=== PATIENT | male | born 1995 | race Caucasian/White ===

== ENCOUNTER 2017-10-13 04:33 | Emergency (ER) | payer BC, OTHER ==
[2017-10-13] MEDS ORDERED: NICOTINE 21 MG/24 HR PATCH.TD24 TD ONE (05:30)
[2017-10-13] MEDS ORDERED: LORAZEPAM INJ 2 MG/1 ML VIAL IM ONE (05:36)
[2017-10-13] MEDS ORDERED: FOLIC ACID INJ 5 MG/1 ML 10 ML VIAL IV ONE (05:36)
[2017-10-13] MEDS ORDERED: THIAMINE HCL 100 MG in NORMAL SALINE 50 ML IV ONE (05:36)
[2017-10-13] MEDS ORDERED: NORMAL SALINE 1000 ML 1,000 ML IV ONE (05:36)
--- NOTE | 2017-10-13 05:42 | ER Document Report ---
ED General - General Chief Complaint: Suicidal Ideation Stated Complaint: VOLUNTARY COMMIT Time Seen by Provider: 10/13/17 05:36 Notes: Patient is 22-year-old male who presents with complaint of suicidal ideations. Patient is brought in by police. Police were called to pick patient up because he called the [place] hotline said he wanted to hurt himself. The please told him that if he refuses to go that they would not involuntary commit him and take him in handcuffs. Patient therefore came here but now that is here he is now saying that he does not want to be here and he says he only told police he would be willing to come so that they would not place him in handcuffs. He does admit that he has a history of suicide attempts in the past. He has history of severe PTSD. He has a history of chronic alcoholism and drinks alcohol every day. He says that he stays with his mother. He says that his mother treats him like he is "an indolent" and that she does not help his depression or thoughts of suicide. Patient says he does drink every day. He is unsure if he has withdrawal symptoms. He denies having tremors or shakes when gone without drinking. He has tried the hurt himself in the past. He denies doing anything tonight to hurt himself. TRAVEL OUTSIDE OF THE U[place] IN LAST 30 DAYS: No - Related Data Allergies/Adverse Reactions: No Known Allergies Allergy (Unverified 03/19/16 05:07) Past Medical History - Social History Smoking Status: Current Every Day Smoker Frequency of alcohol use: Heavy Drug Abuse: None Family History: Reviewed & Not Pertinent Past Surgical History: Reports: Hx Appendectomy, Hx Cholecystectomy, Hx Kidney ( Renal Surgery) Review of Systems - Review of Systems Notes: My Normal Review Basic REVIEW OF SYSTEMS: CONSTITUTIONAL : Denies fever, chills, or sweats. Denies recent illness. EENT: Denies eye, ear, throat, or mouth pain or symptoms. Denies nasal or sinus congestion. CARDIOVASCULAR: Denies chest pain. RESPIRATORY: Denies cough, cold, or chest congestion. Denies shortness of breath, difficulty breathing, or wheezing. GASTROINTESTINAL: Denies abdominal pain. Denies nausea, vomiting, or diarrhea. MUSCULOSKELETAL: Denies neck or back pain or joint pain or swelling. SKIN: Denies rash or skin lesions. NEUROLOGICAL: Denies altered mental status or loss of consciousness. Denies headache. Denies weakness or paralysis or loss of use of either side. Denies problems with gait or speech. Denies sensory or motor loss. PSYCHIATRIC: Severe depression and thoughts of suicide. ALL OTHER SYSTEMS REVIEWED AND NEGATIVE. Physical Exam - Vital signs Vitals: Temp Pulse Resp BP Pulse Ox 97.5 F 120 H 20 133/88 H 100 10/13/17 05:01 10/13/17 05:01 10/13/17 05:01 10/13/17 05:01 10/13/17 05:01 - Notes Notes: General Appearance: Well nourished, alert, no acute distress, no obvious discomfort. Patient is at times tearful on exam. He will never make eye contact. He is constantly staring at the wall or the floor. Vitals: reviewed, See vital signs table. Head: no swelling or tenderness to the head Eyes: PERRL, EOMI, Conjuctiva clear Neck: Supple, no neck tenderness, No thyromegaly Lungs: No wheezing, No rales, No rhonci, No accessory muscle use, good air exchange bilaterally. Heart: Tachycardic rate, Regular rythm, No murmur, no rub Abdomen: Normal BS, soft, No rigidity, No abdominal tenderness, No guarding, no rebound, no abdominal masses, no organomegaly Extremities: strength 5/5 in all extremities, good pulses in all extremities, no swelling or tenderness in the extremities, no edema. Skin: warm, dry, appropriate color, no rash Neuro: speech clear, oriented x 3, normal affect, responds appropriately to questions. Normal gait.. Course - Re-evaluation Re-evalutation: 10/13/17 05:40 Patient refuses to say that he will stay voluntarily. He keeps saying he wants to leave. Patient mixed very poor eye contact and is very agitated and tearful at the same time. He tells me that he would go home if he left here. I asked him what kind of support system he has any says his mom lives here however him this mom do not get along and he says that she makes everything worse. He does not have a good support system to be discharged home to and the patient is very concerning that he will not make any sort of eye contact is very easily agitated and tearful and I fear that if he were to leave. He would most likely kill himself based on my findings on exam and my interaction with him. I have therefore place him on involuntary commitment paperwork. Being that he has a history of alcohol abuse I will have him placed on a monitor. He is currently tachycardic but I do not think this is from withdrawal. He has no tremors. I think the tachycardia is due to his emotional state and agitation. Will have to be monitored for symptoms of withdrawal while he was here in the ER because of his chronic history of alcohol use.. - Vital Signs Vital signs: Temp Pulse Resp BP Pulse Ox 97.5 F 120 H 20 133/88 H 100 10/13/17 05:01 10/13/17 05:01 10/13/17 05:01 10/13/17 05:01 10/13/17 05:01
[2017-10-13 06:23] LABS: APPEARANCE,URINE CLEAR; BILIRUBIN,URINE NEGATIVE (NEGATIVE); COLOR,URINE STRAW; GLUCOSE, URINE NEGATIVE (NEGATIVE); KETONES,URINE NEGATIVE (NEGATIVE); LEUKOCYTE ESTERASE,URINE NEGATIVE (NEGATIVE); NITRITE,URINE NEGATIVE (NEGATIVE); PROTEIN,URINE NEGATIVE (NEGATIVE); URINE SPECIFIC GRAVITY 1.003; UROBILINOGEN,URINE NEGATIVE mg/dL (<2.0)
[2017-10-13] MEDS ORDERED: THIAMINE HCL INJ 200 MG/2 ML VIAL ONE (06:26)
[2017-10-13 06:36] LABS: URINE AMPHETAMINES SCREEN NEGATIVE; URINE BARBITURATES SCREEN NEGATIVE; URINE BENZODIAZEPINES SCREEN NEGATIVE; URINE COCAINE SCREEN NEGATIVE; URINE MARIJUANA (THC) SCREEN NEGATIVE; URINE METHADONE SCREEN NEGATIVE; URINE PHENCYCLIDINE SCREEN NEGATIVE
[2017-10-13 06:37] LABS: HEMATOCRIT 50.3 % (37.9-51.0); HEMOGLOBIN 17.8 g/dL (13.5-17.0); MEAN CORPUSCULAR HEMOGLOBIN 29.8 pg (27.0-33.4); MEAN CORPUSCULAR HGB CONC 35.4 g/dL (32.0-36.0); MEAN CORPUSCULAR VOLUME 84 fl (80-97); PLATELET COUNT 227 10^3/uL (150-450); RED BLOOD COUNT 5.99 10^6/uL (4.35-5.55); RED CELL DISTRIBUTION WIDTH 14.2 % (11.5-14.0); WHITE BLOOD COUNT 9.4 10^3/uL (4.0-10.5)
[2017-10-13 07:06] LABS: ALANINE AMINOTRANSFERASE 137 U/L (21-72); ALBUMIN 5.3 g/dL (3.5-5.0); ALCOHOL 71 mg/dL (NONE DETECTED); ALKALINE PHOSPHATASE 100 U/L (38-126); ANION GAP 17 (5-19); ASPARTATE AMINO TRANSFERASE 93 U/L (17-59); BILIRUBIN,DIRECT 0.2 mg/dL (0.0-0.4); BILIRUBIN,TOTAL 1.7 mg/dL (0.2-1.3); BLOOD UREA NITROGEN 12 mg/dL (7-20); CALCIUM 10.7 mg/dL (8.4-10.2); CARBON DIOXIDE 29 mmol/L (22-30); CHLORIDE 98 mmol/L (98-107); GLUCOSE 112 mg/dL (75-110); POTASSIUM 3.9 mmol/L (3.6-5.0); SODIUM 143.5 mmol/L (137-145); TOTAL PROTEIN 7.4 g/dL (6.3-8.2)
[2017-10-13 07:10] LABS: ACETAMINOPHEN < 10 ug/mL (10-30); SALICYLATE < 1.0 mg/dL (2.0-20.0)
[2017-10-13 07:27] LABS: ABSOLUTE LYMPHOCYTES# (MANUAL) 2.8 10^3/uL (0.5-4.7); ABSOLUTE MONOCYTES # (MANUAL) 0.6 10^3/uL (0.1-1.4); ABSOLUTE NEUTROPHILS# (MANUAL) 5.8 10^3/uL (1.7-8.2); BASOPHILS % (MANUAL) 0 % (0-2); EOSINOPHILS % (MANUAL) 2 % (0-6); LYMPHOCYTES % (MANUAL) 30 % (13-45); MONOCYTES % (MANUAL) 6 % (3-13); SEGMENTED NEUTROPHILS % (MAN) 62 % (42-78); TOTAL CELLS COUNTED 100
[2017-10-13 07:29] LABS: PLATELET COMMENT ADEQUATE; RBC MORPHOLOGY COMMENT NORMO-CYTIC/CHROMIC
--- NOTE | 2017-10-13 08:45 | EKG REPORT ---
SEVERITY:- BORDERLINE ECG - SINUS TACHYCARDIA INFERIOR Q WAVES, PROBABLY NORMAL VARIATION BORDERLINE T ABNORMALITIES, INFERIOR LEADS : Confirmed by: Victorino Thapa MD 13-Oct-2017 08:45:30
--- NOTE | 2017-10-13 09:41 | ER Document Report ---
Doctor's Note Notes: 10/13/17 09:39 22-year-old male who presenting with suicidal ideation with a history of alcohol intoxication. Patient was very agitated. The off going provider was very concerned about suicidal ideation. Patient is still slightly tachycardic but was very agitated. He was given medications to help him calm. Labs as recorded consistent with chronic alcohol abuse. We are awaiting psychology evaluation. Anticipate holding the patient at this time.
[2017-10-13] MEDS ORDERED: ONDANSETRON HCL INJ/PF 4 MG/2 ML SDV IV ONE (10:32)
[2017-10-13] MEDS ORDERED: LORAZEPAM 1 MG TABLET PO ONE (14:39)
--- NOTE | 2017-10-13 16:38 | PSYCHOLOGICAL NOTE ---
Psych Note - Psych Note Psych Note: Reason for consult: Suicidal Ideation; IVC Consent Permissions: Friends- Karthik [phone]; Charmaine [phone] Patient is 22-year-old male who presents with complaint of suicidal ideations. Patient is brought in by police. Police were called to pick patient up because he called the [place] hotline said he wanted to hurt himself. The please told him that if he refuses to go that they would not involuntary commit him and take him in handcuffs. Patient therefore came here but now that is here he is now saying that he does not want to be here and he says he only told police he would be willing to come so that they would not place him in handcuffs. He does admit that he has a history of suicide attempts in the past. He has history of severe PTSD. He has a history of chronic alcoholism and drinks alcohol every day. He says that he stays with his mother. Patient disclosed that he is unable to remember why he is currently at [facility] " I am drawing a blank." He states he knows that he came with "community service director." Patient states he drinks every night "just enough to get buzz." When asked if he was only buzzed why he cannot remember what brought him into [facility] he stated "as probably pretty" out of it. Patient then disclosed that he remembers calling mobile crisis because he was thinking about friends he lost in the [employer]. He states he has PTSD from this. When asked how long the patient served he stated "2 months... I was med sep." Clinician asked who his friends were that he lost from the [employer] he stated "Matt shot outside [place] and Prim killed himself." When asked about medications he stated he was unable to remember but he has not been on anything since having . Patient was asked where he filled his medications and he said [facility]. After confirming with the patient that the clinician will be calling in the hospital to get a list of medications he stated "just lisinopril and Adderall are the big ones." He states he has been on Adderall since he was 14 years old and confirms Adderall and Lisinopirl the reasons he was from the [employer] "I did not want take pills anymore." Patient currently disclosed that he has Blue Cross Blue Shield and is asking clinician for an itemized list of how much everything costs to include medications that have been provided to him. Patient is alert and orientated to person, place, time and circumstance. Mood is irritable with restricted affect.
[2017-10-13] MEDS ORDERED: TRAZODONE HCL 50 MG TABLET PO ONE (22:24)
--- NOTE | 2017-10-14 09:30 | ER Document Report ---
Doctor's Note Notes: 10/14/17 09:29 22-year-old male with history of post traumatic stress disorder presenting with alcohol intoxication initially with suicidal ideation. Vision initially on day 1 was very agitated. He wanted to leave shortly after arriving. Patient was very upset yesterday that he was not allowed to go home. Labs and vital signs as recorded. We are awaiting psychology reevaluation. 10/14/17 11:03 Patient is being much more calm and cooperative at this time. He is denying any suicidal ideations. Patient really would like us not to talk to his mother given their strained relationship. He does state that he has a very good friend Bunny who is helping him find outpatient follow-up. Patient is and [facility] We will call the front Bunny to try to have him picker and sorter load and unload the patient. We will provide outpatient follow-up and strict return precautions. 10/14/17 11:44 Bunny is currently in the room. We have provided outpatient services for counseling. [facility]. Bunny is very comfortable with the patient going home. He is able to help the patient and has known the patient since middle school. Patient is very calm and cooperative at this time. Patient will be discharged home with strict return precautions, outpatient resources provided, with an already scheduled [facility].
--- NOTE | 2017-10-14 11:53 | PSYCHOLOGICAL NOTE ---
Psych Note - Psych Note Psych Note: Reason for consult: Suicidal Ideation Contact Permission: Karthik Mendieta [phone] Patient is a 22 year old male. Patient denies SI/HI. Patient reports at the time he was just feeling upset because of the situation in his home. Patient reports he has been living with his mother and they often have conflicts that affect patient's mood. Patient reports that as he grew up his mother convinced him he was sick with everything she could think of and took him to the doctor's and specialist to test for "pretty much anything". Patient reports his mother even went as far to take him to an oncologist because she was convinced he had cancer. 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 Patient reports due to financial set backs he was forced to move back in with his parents and does not feel independent, as his mother is continuously trying to control his life leaving him depressed. Patient reports that he recently applied for a job and was worried that the prospective employer had reached out to him via cell phone and due to him not having his belongings that he would miss out on an opportunity. Patient reports he wants to get a job so he could pay his car insurance and hopefully be able to move out of his parents home. 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 Patient reports he imagines himself with an independent future. Patient reports he has friends that are supportive and prefer his friend [place] as his supportive person to assist him in making sure he goes to his doctor's appointment. Patient reports Karthik had already arranged an appointment with the [facility] for him however this is for medication management and the referral to actually see a therapist. Patient reports for insurance purposes he has to go through this process first before he can get outpatient [facility]. Patient reports he has plans in place so that he does not end up back in the ED for suicidal ideation. Patient reports he knew he would not actual act on those feelings initially ( denying any suicidal intent to begin with) however once he had spoken to someone on the phone for a "well-being check", that the officers forced him to come to the ED even though he did not feel it was necessary, as he was just speaking out of anger with his mother. Clinician utilized solution focused brief therapy techniques to assist client in identifying strengths, and a solution to his identified problem. Patient reports that he is independent, and he knows what to do, and reports he will continue to apply for a job because his sole problem is financial stress and being stuck in his parent's home due to having no finances of his own. Collateral Information: Karthik Mendieta [phone] Karthik states he has known patient since patient has been in middle school. Karthik states that he checks in with patient often, and he is well aware of how patient is faring. 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 Karthik verifies patient has an appointment at the [facility]. Karthik verifies that he will ensure patient attend the appointment, as well as following through with obtaining an outpatient therapy appointment, Karthik states they will call during business hours to see if they could get the outpatient therapy appointment sooner than the October 17 appointment that is for referral and meds. Medication Recommendations: Medication recommendations made by [facility] contracted psychiatrist Dr. Klaus MD. includes: None Diagnosis: Per Hx 309.81 ( F43.10) Posttraumatic Stress Disorder [ Clinician observed there was not enough information presented to diagnosis patient with this diagnosis, please note this diagnosis was strictly listed due to patient report of a previous diagnosis he received in an outpatient setting] V60.9 ( Z59.9) Unspecified Housing or Economic Problem Impression/Plan: Patient is psychiatrically clear for discharge by mental health. Recommendation for patient to follow up with primary care provider appointment on October 17, 3:00 pm with [facility]. Patient states this appointment will assist him with getting an actual therapy appointment, additional resources for outpatient therapy provided. Patient's friend Karthik included in discharge planning and agrees to assist patient in following up with plan.Consulted with Dr. Rico regarding the management and care of patient.
[2017-10-14 12:34] VITALS: BP 118/70
== END 2017-10-14 12:33 | disposition home or self-care (01) ==
LOC: ER 04:33
DX: F32.9 Major depressive disorder, single episode, unspecified (principal); F10.229 Alcohol dependence with intoxication, unspecified; R45.851 Suicidal ideations; R45.1 Restlessness and agitation; F17.200 Nicotine dependence, unspecified, uncomplicated; Z91.5 Personal history of self-harm
CPT/HCPCS: 93005; 99285; 96372; 96361; 96374; 96375; 36415; 80307 ×4; 85025; 80053; 81001; 93010; J3490; J2060; J3411; J2405; J7030

== ENCOUNTER 2018-10-21 22:45 | Emergency (ER) | payer SELFPAY ==
--- NOTE | 2018-10-22 01:25 | ER Document Report ---
ED Medical Screen (RME) - General Chief Complaint: Head Injury Stated Complaint: HIT HEAD Time Seen by Provider: 10/22/18 01:22 Notes: 23-year-old male struck the right side of his head on the refrigerator door and has been dizzy, lightheaded, disoriented, and very nauseous. "I saw stars." I have treated and performed a rapid initial assessment of this patient. A comprehensive ED assessment and evaluation of the patient, analysis of test results and completion of medical decision making process will be conducted by additional ED providers. PHYSICAL EXAMINATION: GENERAL: Well-appearing, well-nourished and in no acute distress. A&Ox4. Answers questions appropriately. LUNGS: Breath sounds clear to auscultation bilaterally and equal. No wheezes rales or rhonchi. HEART: Regular rate and rhythm without murmurs, rubs, gallops. Neurologic: No focal deficits TRAVEL OUTSIDE OF THE [place] IN LAST 30 DAYS: No - Related Data Allergies/Adverse Reactions: No Known Allergies Allergy (Unverified 03/19/16 05:07) Past Medical History Renal/ Medical History: Denies: Hx Peritoneal Dialysis Past Surgical History: Reports: Hx Appendectomy, Hx Cholecystectomy, Hx Kidney (Renal Surgery) Physical Exam - Vital signs Vitals: Temp Pulse Resp BP Pulse Ox 99.0 F 100 20 136/91 H 99 10/21/18 23:14 10/21/18 23:14 10/21/18 23:14 10/21/18 23:14 10/21/18 23:14 Course - Vital Signs Vital signs: Temp Pulse Resp BP Pulse Ox 99.0 F 100 20 136/91 H 99 10/21/18 23:14 10/21/18 23:14 10/21/18 23:14 10/21/18 23:14 10/21/18 23:14
--- NOTE | 2018-10-22 02:33 | RADIOLOGY REPORT (SQ) ---
CLINICAL HISTORY: disoriented after head injury COMPARISON: None. TECHNIQUE: CT HEAD WITHOUT IV CONTRAST on 10/22/2018 1:22 AM CDT This exam was performed according to our departmental dose-optimization program, which includes automated exposure control, adjustment of the mA and/or kV according to patient size and/or use of iterative reconstruction technique. FINDINGS: There is no acute hemorrhage, mass effect or midline shift. Escobar-white differentiation is preserved. There is no hydrocephalus. There is no significant volume loss for age. The calvarium is intact. Orbits and globes are unremarkable. The paranasal sinuses are clear. Mastoid air cells are clear. IMPRESSION: No acute intracranial findings.
--- NOTE | 2018-10-22 04:13 | ER Document Report ---
ED General - General Chief Complaint: Head Injury Stated Complaint: HIT HEAD Time Seen by Provider: 10/22/18 01:22 TRAVEL OUTSIDE OF THE [place] IN LAST 30 DAYS: No - HPI Notes: Patient presents emergency department for evaluation. He hit his head on the refrigerator door, when he was leaning down and to look into it. He states he felt some blurred vision and slightly dizzy following that. He states that on his drive here he felt slightly "disoriented." He does have a history of concussions in the past. He denies being on any blood thinners. He did not lose consciousness. He denies any significant pain at this time. - Related Data Allergies/Adverse Reactions: No Known Allergies Allergy (Unverified 03/19/16 05:07) Past Medical History - General Information source: Patient - Social History Smoking Status: Never Smoker Frequency of alcohol use: Rare Drug Abuse: None Family History: Reviewed & Not Pertinent Patient has suicidal ideation: No Patient has homicidal ideation: No - Past Medical History Cardiac Medical History: Reports: Hx Hypertension - supposed to take Lisinopril- non-compliant Renal/ Medical History: Denies: Hx Peritoneal Dialysis Past Surgical History: Reports: Hx Appendectomy, Hx Cholecystectomy, Hx Kidney (Renal Surgery) Review of Systems - Review of Systems Constitutional: No symptoms reported EENT: No symptoms reported Cardiovascular: No symptoms reported Respiratory: No symptoms reported Gastrointestinal: See HPI Genitourinary: No symptoms reported Musculoskeletal: No symptoms reported Neurological/Psychological: See HPI Physical Exam - Vital signs Vitals: Temp Pulse Resp BP Pulse Ox 99.0 F 100 20 136/91 H 99 10/21/18 23:14 10/21/18 23:14 10/21/18 23:14 10/21/18 23:14 10/21/18 23:14 - Notes Notes: Vital signs reviewed, please refer to chart. Patient is normocephalic, atraumatic. Pupils equal round, reactive to light. Neck is supple without meningismus. Heart is regular rate and rhythm. Lungs are clear to auscultation bilaterally. Abdomen is soft, nontender, normoactive bowel sounds throughout. Extremities without cyanosis, clubbing, edema. Peripheral pulses are equal. Skin is warm and dry. Patient is awake, alert, oriented x3. Cranial nerves II through XII are grossly intact without focal neurological deficits. Strength is plus 5 out of 5 bilateral upper and lower extremity's. Sensation is intact, intact [id number], rapid altering movements, heel to perry. Course - Re-evaluation Re-evalutation: 10/22/18 06:56 Patient presents emergency department for evaluation. He had CT scan ordered by regional provider. It was unremarkable. His neurological exam is unremarkable. The patient has suffered a mild head injury, symptoms consistent with concussion. The patient was told this information, that he needed to rest. He is 12 primary care, return to the ED with worsening or new concerning symptoms of any sort. - Vital Signs Vital signs: Temp Pulse Resp BP Pulse Ox 99.0 F 100 20 136/91 H 99 10/21/18 23:14 10/21/18 23:14 10/21/18 23:14 10/21/18 23:14 10/21/18 23:14 Discharge - Discharge Clinical Impression: Head injury due to trauma Condition: Stable Disposition: HOME, SELF-CARE Instructions: Head Injury Precautions ([facility]) Additional Instructions: Rest. Follow-up with your doctor this week. Return to the emergency department with worsening or new concerning symptoms. Forms: Return to Work
[2018-10-22 07:31] VITALS: BP 136/89
== END 2018-10-22 04:30 | disposition home or self-care (01) ==
LOC: ER 22:45
DX: S09.90XA Unspecified injury of head, initial encounter (principal); W22.09XA Striking against other stationary object, initial encounter; I10 Essential (primary) hypertension; Z90.49 Acquired absence of other specified parts of digestive tract
CPT/HCPCS: 70450; 99283

== ENCOUNTER 2019-08-13 10:26 | Emergency (ER) | payer SELFPAY ==
--- NOTE | 2019-08-13 11:25 | PSYCHOLOGICAL NOTE ---
Psych Note - Psych Note Date seen by psych provider: 08/13/19 Time seen by psych provider: 11:00 Psych Note: Clinician spoke with Olga [id number] 2017 but he failed the physical in [employer] 03/21/2016-05/30/2016 [facility] for [facility] Impression/Plan: patient is recommended for rescind of IVC and is cleared from acute psychiatric services.
--- NOTE | 2019-08-13 11:51 | ER Document Report ---
ED General - General TRAVEL OUTSIDE OF THE [place] IN LAST 30 DAYS: No - General Chief Complaint: Psych Problem Stated Complaint: PSYCH EVAL Time Seen by Provider: 08/13/19 11:10 Primary Care Provider: [facility] [Provider Group] - Follow up in 3-5 days Notes: 24-year-old male presents for "help." Patient called 911 risk requesting help and was IVC and brought to the ER. Patient denies any SI or HI. Patient is also complaining of some cough/congestion that is been ongoing for "a while." Patient denies any fever, chest pain, abdominal pain, nausea/vomiting. (ALXEIA HERNANDES) - Related Data Allergies/Adverse Reactions: No Known Allergies Allergy (Unverified 03/19/16 05:07) Past Medical History - Social History Smoking Status: Current Every Day Smoker Frequency of alcohol use: Heavy Drug Abuse: None Family History: Reviewed & Not Pertinent Patient has suicidal ideation: Yes Patient has homicidal ideation: No - Past Medical History Cardiac Medical History: Reports: Hx Hypertension - supposed to take Lisinopril- non-compliant Renal/ Medical History: Denies: Hx Peritoneal Dialysis Past Surgical History: Reports: Hx Appendectomy, Hx Cholecystectomy, Hx Kidney (Renal Surgery) Review of Systems - Review of Systems Notes: Constitutional: Negative for fever. HENT: Negative for sore throat. Eyes: Negative for visual changes. Cardiovascular: Negative for chest pain. Respiratory: Negative for shortness of breath. Gastrointestinal: Negative for abdominal pain, vomiting or diarrhea. Genitourinary: Negative for dysuria. Musculoskeletal: Negative for back pain. Skin: Negative for rash. Neurological: Negative for headaches, weakness or numbness. Psych: Negative for SI or HI. 10 point ROS negative except as marked above and in HPI. (ALEXIA HERNANDES) Physical Exam - Vital signs Vitals: Temp Pulse Resp BP Pulse Ox 97.9 F 118 H 18 138/61 H 97 08/13/19 11:04 08/13/19 11:04 08/13/19 11:04 08/13/19 11:04 08/13/19 11:04 - Notes Notes: GENERAL: Well-appearing, well-nourished and in no acute distress. HEAD: Atraumatic, normocephalic. EYES: Extraocular movements intact, sclera anicteric, conjunctiva are normal. NECK: Normal range of motion, supple without lymphadenopathy or JVD. LUNGS: Breath sounds clear to auscultation bilaterally and equal. No wheezes rales or rhonchi. HEART: Regular rate and rhythm without murmurs, rubs or gallops. EXTREMITIES: Normal range of motion, no pitting or edema. No clubbing or cyanosis. NEUROLOGICAL: Cranial nerves II through XII grossly intact. Normal speech, normal gait. PSYCH: Normal mood, normal affect. SKIN: Warm, Dry, normal turgor, no rashes or lesions noted. (ALEXIA HERNANDES) Course - Re-evaluation Re-evalutation: 08/13/19 11:51 24-year-old male requesting "help." Patient was evaluated by psychiatric team who states he is cleared. Patient to be provided with resources and [facility] Patient is also complaining of some cough/congestion. Patient is afebrile. Lungs clear to auscultation bilaterally. Regular rate and rhythm. PE is otherwise unremarkable. Patient given return precautions. Patient given outpatient follow-up with PCP. Patient voices understanding and agrees with plan of care. 08/13/19 12:56 patient's heart rate is elevated. 1 L bolus was ordered however patient is refusing. Patient has a normal mental status and full decisional K capacity. Patient understands the risk of leaving AMA including permanent disability and and has an opportunity to ask questions about his medical condition. Patient has been informed that he may return for care at any time and has been referred to his local PCP for follow-up GERALDO. Patient voices understanding and states he would like to leave AGAINST MEDICAL ADVICE. (ALEXIA HERNANDES) - Vital Signs Vital signs: Temp Pulse Resp BP Pulse Ox 98.6 F 123 H 18 130/49 H 95 08/13/19 12:25 08/13/19 12:25 08/13/19 12:25 08/13/19 12:25 08/13/19 12:25 Discharge - Discharge Clinical Impression: Acute URI, Left against medical advice Condition: Stable Disposition: HOME, SELF-CARE Instructions: Upper Respiratory Illness ([facility]) Additional Instructions: You are signing out against medical advice. You have been evaluated by both medical and behavioral health teams and have been deemed appropriate for discharge. You are encouraged to obtain from alcohol and to follow up with outpatient services for both mental health and substance abuse. You have been provided a local resource list of area providers including mobile crisis contact information. You can also contact the [place]'s Crisis Line at [phone] Prescriptions: Benzonatate [Tessalon Perles 100 mg Capsule] 100 mg PO [id number] PRN #40 capsule PRN Reason: Referrals: [facility] [Provider Group] - Follow up in 3-5 days
[2019-08-13 12:26] VITALS: BP 130/49
[2019-08-13] MEDS ORDERED: NORMAL SALINE 1000 ML 1,000 ML IV ONE (12:27)
== END 2019-08-13 13:05 | disposition home or self-care (01) ==
LOC: ER 10:26
DX: J06.9 Acute upper respiratory infection, unspecified (principal); R68.89 Other general symptoms and signs; F17.200 Nicotine dependence, unspecified, uncomplicated; I10 Essential (primary) hypertension; Z90.49 Acquired absence of other specified parts of digestive tract
CPT/HCPCS: 99284

== ENCOUNTER 2019-09-21 01:29 | Emergency (ER) | payer SELFPAY ==
[2019-09-21 01:37] VITALS: BP 144/97
== END 2019-09-21 01:33 | disposition left against medical advice (07) ==
LOC: ER 01:29
DX: Z53.21 Procedure and treatment not carried out due to patient leaving prior to being seen by health care provider (principal)

== ENCOUNTER 2020-07-27 05:57 | Emergency (ER) | payer SELFPAY ==
[2020-07-27 06:06] VITALS: BP 155/105
== END 2020-07-27 06:20 | disposition left against medical advice (07) ==
LOC: ER 05:57
DX: Z53.21 Procedure and treatment not carried out due to patient leaving prior to being seen by health care provider (principal)